=== PATIENT | male | born 1995 | race Caucasian/White ===

== ENCOUNTER → 2018-12-09 | Outpatient (CLI) | payer OTHER ==
[~2018-12-09] MED LIST: AMOXICILLIN500 M3 PO; AMOXIL250 MG; CLINDAMYCIN150 MG PO; KEFLEX500 MG PO; KENALOG0.025% TP; MOTRIN800 MG PO; Motrin,Rufen800 MG PO; NORCO 5-325 TA1 EACH PO; VISTARIL25 M1 PO; ZOFRAN ODT4 MG SL
[2018-12-09 15:15] LABS: ALBUMIN 4.5 gm/dl (3.1-4.5); ALKALINE PHOSPHATASE 71 U/L (45-117); BILIRUBIN, DIRECT 0.1 mg/dL (0.0-0.2); BUN 16 mg/dl (7-24); CHLORIDE 103 mmol/L (98-107); CREATININE 1.18 mg/dL (0.70-1.30); POTASSIUM 3.9 mmol/L (3.5-5.1); SGOT/AST 13 IU/L (3-35); SGPT/ALT 21 U/L (12-78); SODIUM 139 mmol/L (136-145); TOTAL PROTEIN 7.9 gm/dL (6.4-8.2)
== END | disposition home or self-care (01) ==
LOC: LAB 14:28
PROVIDERS: Nurse Practitioner Women's Health
DX: F10.10 Alcohol abuse, uncomplicated (principal)

== ENCOUNTER 2019-05-06 16:25 | Emergency (ER) | payer OTHER ==
[2019-05-06] MEDS ORDERED: KEFLEX500 M1 PO (21:13)
[2019-05-06] MEDS ORDERED: Motrin,Rufen800 MG PO (21:13)
== END 2019-05-06 21:50 | disposition home or self-care (01) ==
LOC: ED 16:25
DX: S01.01XA Laceration without foreign body of scalp, initial encounter (principal); S49.92XA Unspecified injury of left shoulder and upper arm, initial encounter; Z88.1 Allergy status to other antibiotic agents; V49.9XXA Car occupant (driver) (passenger) injured in unspecified traffic accident, initial encounter; Y93.89 Activity, other specified; Y92.89 Other specified places as the place of occurrence of the external cause; Y99.8 Other external cause status

== ENCOUNTER 2019-11-20 15:39 | Emergency (ER) | payer OTHER ==
[~2019-11-20] VITALS: Wt 77.1 kg
[~2019-11-20 15:39] MED LIST changes: +KEFLEX500 M1 PO
[2019-11-20 16:07] LABS: BASO % 0.3 % (0.0-1.0); EOS # 1.7 10*3/uL (0.0-0.4); EOS % 18.5 % (1.0-4.0); HEMATOCRIT 47.8 % (42.0-52.0); LYMPH # 1.8 10*3/uL (1.3-4.4); LYMPH % 19.6 % (27.0-41.0); MEAN CORPUSCULAR HGB CONC 33.7 g/dl (33.0-37.0); MEAN PLATELET VOLUME 11.6 fl (9.6-12.3); MONO # 0.7 10*3/uL (0.1-1.0); MONO % 7.6 % (3.0-9.0); NEUT # 4.8 10*3/uL (2.3-7.9); NEUT % 53.8 % (47.0-73.0); PLATELET COUNT AUTOMATED 220 10*3/uL (130-400); RED BLOOD COUNT 5.37 10*6/uL (4.50-5.90); RED CELL DISTRI WIDTH 12.2 % (0-14.5); WHITE BLOOD COUNT 8.9 10*3/uL (4.8-10.8)
[2019-11-20 16:23] LABS: ALBUMIN 4.1 gm/dl (3.1-4.5); ALKALINE PHOSPHATASE 94 U/L (45-117); BUN 12 mg/dl (7-24); CHLORIDE 103 mmol/L (98-107); CREATININE 0.97 mg/dL (0.70-1.30); LIPASE 45 U/L (73-393); POTASSIUM 4.2 mmol/L (3.5-5.1); SGOT/AST 18 IU/L (3-35); SGPT/ALT 20 U/L (12-78); SODIUM 136 mmol/L (136-145)
== END 2019-11-20 17:08 | disposition home or self-care (01) ==
LOC: ED 15:39
PROVIDERS: Emergency Medicine
DX: A05.9 Bacterial foodborne intoxication, unspecified (principal); F17.200 Nicotine dependence, unspecified, uncomplicated; Z88.8 Allergy status to other drugs, medicaments and biological substances; Z79.899 Other long term (current) drug therapy

== ENCOUNTER 2024-05-15 05:42 | Emergency (ER) | payer OTHER ==
[~2024-05-15] VITALS: Ht 170.1 cm; Wt 77.1 kg
[2024-05-15] MEDS ORDERED: Lidocaine Hydrochloride 15 ML UDC PO STA (06:49)
[2024-05-15] MEDS ORDERED: MG-AL HYDROXIDE/SIMETICONE 30 ML UDC PO STA (06:49)
[2024-05-15] MEDS ORDERED: Tdap Vaccine 0.5 ML SYR (Adult Vaccine) IM ONE (06:50)
[2024-05-15] MEDS ORDERED: SODIUM CHLORIDE 0.9% 1,000 ML IV ONE (07:30)
[2024-05-15] MEDS ORDERED: FOLIC ACID 0.4 MG IV ONE (07:35)
[2024-05-15] MEDS ORDERED: MULTIVITAMIN IV ONE (07:35)
[2024-05-15] MEDS ORDERED: MAGNESIUM SULFATE 100 ML IV ONE (07:40)
[2024-05-15] MEDS ORDERED: FOLIC ACID 1 MG TAB PO ONE (07:40)
[2024-05-15] MEDS ORDERED: Thiamine 200 MG/2 ML VIAL IV SCH (07:40)
[2024-05-15] MEDS ORDERED: MULTIVITAMIN 1 TAB TAB PO SCH (07:40)
[2024-05-15 07:49] LABS: BASO % 0.1 % (0.0-1.0); EOS % 0.1 % (1.0-4.0); HEMATOCRIT 51.7 % (42.0-52.0); MEAN CORPUSCULAR HGB 30.6 pg (27.0-31.0); MEAN CORPUSCULAR HGB CONC 33.3 g/dl (33.0-37.0); MEAN PLATELET VOLUME 11.3 fl (9.6-12.3); MONO # 0.4 10*3/uL (0.1-1.0); MONO % 2.8 % (3.0-9.0); NEUT # 13.8 10*3/uL (2.3-7.9); NEUT % 88.6 % (47.0-73.0); PLATELET COUNT AUTOMATED 250 10*3/uL (130-400); RED BLOOD COUNT 5.62 10*6/uL (4.50-5.90); WHITE BLOOD COUNT 15.5 10*3/uL (4.8-10.8)
[2024-05-15 08:11] LABS: ALKALINE PHOSPHATASE 78 U/L (46-116); BUN 6 mg/dl (9-23); CHLORIDE 108 mmol/L (98-107); ETHYL ALCOHOL 211.6 mg/dl (<3); POTASSIUM 3.8 mmol/L (3.4-5.1); SGPT/ALT 19 U/L (5-49); TOTAL PROTEIN 7.9 gm/dL (6.0-8.0)
[2024-05-15] MEDS ORDERED: AMOX-CLAV 875-1 EACH PO (09:59)
[2024-05-15 10:04] LABS: URINE AMPHETAMINES Negative (1000ng/ml); URINE BARBITURATES Negative (200ng/ml); URINE BENZODIAZEPINES Negative (200ng/ml); URINE CANNABINOIDS (THC) Positive (50ng/ml); URINE COCAINE Positive (300ng/ml); URINE METHADONE Negative (300ng/ml); URINE OPIATES Negative (300ng/ml); URINE PHENCYCLIDINE Negative (25ng/ml)
== END 2024-05-15 10:04 | disposition home or self-care (01) ==
LOC: ED 05:42
PROVIDERS: Emergency Medicine
DX: S01.512A Laceration without foreign body of oral cavity, initial encounter (principal); M54.2 Cervicalgia; F10.929 Alcohol use, unspecified with intoxication, unspecified; Z88.1 Allergy status to other antibiotic agents; V89.2XXA Person injured in unspecified motor-vehicle accident, traffic, initial encounter; Y93.I9 Activity, other involving external motion; Y92.488 Other paved roadways as the place of occurrence of the external cause; Y99.8 Other external cause status